=== PATIENT | female | born 1985 ===

== ENCOUNTER 2021-07-09 10:04 | Emergency (ER) | payer OTHER, MEDICAID, SELFPAY ==
[2021-07-09] VITALS (9 sets, daily range): BP systolic 118–139; BP diastolic 57–111; PULSE 76–92; RESP 17–19; TEMP 37.3–38.1; O2SAT 95–99; BMI 21.7
--- NOTE | 2021-07-09 11:01 | ED_ITS ---
HPI - General Adult General Chief complaint: Diabetic Problem Stated complaint: DIABETIC EPISODE. VOMITTING-PAIN Time Seen by Provider: 07/09/21 10:15 Source: patient and family Mode of arrival: Family Vehicle Limitations: no limitations History of Present Illness HPI narrative: 36-year-old woman with type 1 diabetes presents with nausea vomiting diarrhea diaphoresis all starting at 4:00 a.m. this morning. She notes that her sugars have been up a little bit over the evening and her glucose monitor shows a been in the 200-400 range. She has been using her usual nightly Lantus at 18 units as well as her Humalog sliding scale with food. She states that she will occasionally have these episodes of nausea and vomiting last was in early May. Typically there have been other issues found including UTIs at 1 point there was a concern for gallbladder issues sometimes there is no issues that are clearly identified. She currently is menstruating complains of no dysuria she has a mild smoker's cough but nothing that is change to suggest infection and she is vaccinated for COVID. No chest pain, dyspnea, orthopnea, headache, skin rashes or other findings. Related Data Previous Rx's Medication Instructions Recorded insulin glargine 100 unit/mL 40 u SQ QPM #1 u 11/25/16 subcutaneous solution (Lantus U-100 Insulin) insulin lispro 100 unit/mL 8 u SQ TIDCC #1 units 11/25/16 subcutaneous cartridge (Humalog U-100 Insulin) insulin lispro 100 unit/mL 8 u SQ AC #10 ml 11/28/16 subcutaneous solution (Humalog U-100 Insulin) azithromycin 250 mg tablet 250 mg PO SEE INSTRUCTIONS #6 tab 01/05/17 (Zithromax) benzonatate 100 mg capsule 100 mg PO BIDP PRN #30 cap 01/05/17 (Tessalon Perles) bupropion HCl 300 mg 24 hr tablet, 300 mg PO QDAY #30 tab 01/05/17 extended release (Wellbutrin XL) insulin glulisine U-100 100 10 - 25 u SQ AC #3 ml 01/05/17 unit/mL subcutaneous pen (Apidra SoloStar U-100 Insulin) lorazepam 1 mg tablet (Ativan) 1 mg PO TIDP PRN #20 tab 01/05/17 NALTREXONE HCL (REVIA) 50 mg PO QDAY #30 tab 01/10/17 levofloxacin 500 mg tablet 500 mg PO QDAY #10 tab 01/10/17 (Levaquin) metoclopramide HCl 10 mg 10 mg PO Q6H #30 tab 07/09/21 disintegrating tablet ondansetron 4 mg disintegrating 4 mg PO Q8H PRN #30 tab 07/09/21 tablet Allergies Allergy/AdvReac Type Severity Reaction Status Date / Time amoxicillin [AMOXICILLIN] Allergy Unknown Verified 07/09/21 10:38 Penicillins [PENICILLINS] Allergy Unknown Verified 07/09/21 10:38 Review of Systems Review of Systems Narrative: Remainder of complete review of systems is otherwise unremarkable except for that included in the HPI. Patient History Medical History Depression Diabetes mellitus type I Surgical History History of lumpectomy Family History Father Age: 66 Hypertension Hyperlipidemia Mother Age: 63 Diabetes mellitus Grandmother Age: 83 Cancer Social History Smoking Status: Current every day smoker Smoking Status: Current every day smoker tobacco type: cigarettes alcohol intake frequency: 0-2 drinks per day Substance Use Type: does not use Exam Narrative Exam Narrative: General: Healthy appearing, in mild distress. Able to give a complete and coherent history. Well-nourished well-developed HEENT: Moist mucous membranes, normal sclera with reactive pupils, Neck: No JVD, supple Respiratory: Lungs are clear to auscultation, no wheezing no rales no rhonchi. Full and symmetrical air movement Cardiac: Regular rate and rhythm no murmurs no bruits Abdomen: Soft, mild tenderness right upper quadrant with mild diffuse abdominal tenderness. No rebound no guarding, good bowel tones, no flank pain Skin: Warm and dry, no rashes Neurologic: Grossly neurologically intact with no obvious asymmetries or abnormalities Extremities: No trauma, well perfused Psych: Cooperative, appropriate insight and affect Initial Vital Signs Initial Vital Signs: Vital Signs Temperature 100.5 F H 07/09/21 10:31 Pulse Rate 83 07/09/21 10:31 Respiratory Rate 19 07/09/21 10:31 Blood Pressure 139/111 H 07/09/21 10:31 Pulse Oximetry 99 07/09/21 10:31 Course Orders Ordered: ED Orders 07/09/21 10:35 CMP [Comprehensive Metabolic Panel] Stat Complete Blood Count AUTO DIFF Stat Lactate (Lactic Acid) Stat 07/09/21 11:10 COVID19 -Nasal swab/Pre-Proc Stat 07/09/21 11:17 Urine Microscopic Stat 07/09/21 11:50 US abdomen limited Stat Hydromorphone HCl (Hydromorphone 0.5 Mg Inj) 0.5 mg IV Q15MIN PRN PRN Reason: Pain, Discontinued Medications Sodium Chloride (Normal Saline 0.9%) 1,000 mls @ 1,000 mls/hr IV BOLUS ONE Stop: 07/09/21 12:37 Last Infusion: 07/09/21 13:54 Dose: 0 mls/hr Documented by: Admin: 07/09/21 11:56 Dose: 1,000 mls/hr Documented by: MIGUEL Sodium Chloride (Normal Saline 0.9%) 1,000 mls @ 1,000 mls/hr IV BOLUS ONE Stop: 07/09/21 12:48 Last Admin: 07/09/21 13:54 Dose: 1,000 mls/hr Documented by: MIGUEL Ondansetron HCl (Ondansetron 4 Mg/2 Ml Inj) 4 mg IV NOW ONE Stop: 07/09/21 11:39 Last Admin: 07/09/21 11:56 Dose: 4 mg Documented by: MIGUEL Vital Signs Vital signs: Vital Signs - 8 hr 07/09/21 10:31 07/09/21 11:22 07/09/21 11:30 Temperature 100.5 F H 99.2 F Pulse Rate 83 84 76 Respiratory Rate 19 17 Blood Pressure 139/111 H 118/61 Pulse Oximetry 99 98 98 Medical Decision Making Lab Data Result diagrams: 07/09/21 10:35 07/09/21 10:35 Labs: Lab Results 07/09/21 07/09/21 07/09/21 Range/Units 10:35 10:35 10:35 WBC 13.5 H (4.5-11.0) X10^3/uL RBC 4.46 (4.0-5.2) X10^6/uL Hgb 14.0 (12.0-16.0) g/dL Hct 42.4 (36-46) % MCV 95.1 (80-100) fL MCH 31.5 (26-34) PG MCHC 33.1 (30-36) % RDW 12.9 (11.6-14.8) % Plt Count 350 (150-400) X10^3/uL Neut % (Auto) 92.2 H (50-75) % Lymph % (Auto) 5.7 L (25-40) % [place] % (Auto) 2.0 L (3-14) % Eos % (Auto) 0.0 L (2-4) % Baso % (Auto) 0.1 (0-2) % Neut # (Auto) 39279 H (1756-6825) /uL Lymph # (Auto) 800 L (1298-0474) /uL [place] # (Auto) 300 (0-900) /uL Eos # (Auto) 0 (0-450) /uL Baso # (Auto) 0 (0-100) /uL Sodium 138 (137-145) mmol/L Potassium 3.8 (3.4-5.1) mmol/L Chloride 107 (98-107) mmol/L Carbon Dioxide 18 L (22-32) mmol/L BUN 13 (7-17) mg/dL Creatinine 0.77 (0.52-1.04) mg/dL Estimated GFR > 60.0 (>60) mL/min BUN/Creatinine Ratio 16.9 (6-22) Glucose 186 H (70-100) mg/dL Lactate 2.7 H (0.7-2.1) mmol/L Calcium 9.6 (8.4-10.2) mg/dL Total Bilirubin 1.3 (0.2-1.3) mg/dL AST 32 (14-36) IU/L ALT 27 (<35) IU/L Alkaline Phosphatase 55 (38-126) U/L Total Protein 7.3 (6.3-8.2) g/dL Albumin 4.7 (3.5-5.0) g/dL Globulin 2.6 (1.7-4.1) g/dL Albumin/Globulin Ratio 1.8 (1.0-2.8) Urine RBC (0-5/HPF) Urine WBC (0-5/HPF) Amorphous Sediment Urine Bacteria (None) Ur Culture Indicated? SARS-CoV-2 (PCR) (Negative) 07/09/21 07/09/21 07/09/21 Range/Units 11:10 11:17 13:15 WBC (4.5-11.0) X10^3/uL RBC (4.0-5.2) X10^6/uL Hgb (12.0-16.0) g/dL Hct (36-46) % MCV (80-100) fL MCH (26-34) PG MCHC (30-36) % RDW (11.6-14.8) % Plt Count (150-400) X10^3/uL Neut % (Auto) (50-75) % Lymph % (Auto) (25-40) % [place] % (Auto) (3-14) % Eos % (Auto) (2-4) % Baso % (Auto) (0-2) % Neut # (Auto) (6294-8264) /uL Lymph # (Auto) (6665-4296) /uL [place] # (Auto) (0-900) /uL Eos # (Auto) (0-450) /uL Baso # (Auto) (0-100) /uL Sodium (137-145) mmol/L Potassium (3.4-5.1) mmol/L Chloride (98-107) mmol/L Carbon Dioxide (22-32) mmol/L BUN (7-17) mg/dL Creatinine (0.52-1.04) mg/dL Estimated GFR (>60) mL/min BUN/Creatinine Ratio (6-22) Glucose (70-100) mg/dL Lactate 0.9 (0.7-2.1) mmol/L Calcium (8.4-10.2) mg/dL Total Bilirubin (0.2-1.3) mg/dL AST (14-36) IU/L ALT (<35) IU/L Alkaline Phosphatase (38-126) U/L Total Protein (6.3-8.2) g/dL Albumin (3.5-5.0) g/dL Globulin (1.7-4.1) g/dL Albumin/Globulin Ratio (1.0-2.8) Urine RBC None seen (0-5/HPF) Urine WBC None seen (0-5/HPF) Amorphous Sediment 2+ Urine Bacteria None seen (None) Ur Culture Indicated? Cult not indicated SARS-CoV-2 (PCR) Negative (Negative) Point of Care Testing Test Results Negative Glucose POC 182 Urine Dip Bedside Urine Glucose Negative Bedside Urine Bilirubin - Negative Bedside Urine Ketone +++ 80 Urine Specific [place] 1.015 Bedside Urine Occult Blood ++ Bedside Urine pH 8.0 Bedside Urine Protein + 30 Bedside Urine Urobilinogen - Negative Bedside Urine Nitrite - Negative Bedside Urine Leukocytes - Negative Esterase Point of care testing: Point of Care Testing Test Results Negative Glucose POC 182 Urine Dip Bedside Urine Glucose Negative Bedside Urine Bilirubin - Negative Bedside Urine Ketone +++ 80 Urine Specific [place] 1.015 Bedside Urine Occult Blood ++ Bedside Urine pH 8.0 Bedside Urine Protein + 30 Bedside Urine Urobilinogen - Negative Bedside Urine Nitrite - Negative Bedside Urine Leukocytes - Negative Esterase MDM Narrative Medical decision making narrative: 36-year-old type 1 diabetic presents with nausea and vomiting. This has been a recurrent issue for her she will frequently wake up nauseated and then have persistent vomiting. At time she has had episodes of DKA some time she has had urinary tract infections. Today's episode does not seem to include either those. There is no evidence of overwhelming infection, sepsis, intra-abdominal infection, DKA or UTI. She will be discharged home with dual anti emetics both Reglan to help with presumed gastroparesis which likely is complicating all of these issues and Zofran to simply suppressant nausea if the right gland is ineffective. Will ask for follow-up with her primary care physician. She is safe for home discharge Discharge Plan Departure Patient Disposition: Home Clinical Impression: Acute dehydration, Vomiting with nausea, not intractable Diabetes mellitus type I Qualifiers: Diabetes mellitus complication status: with other specified complication Qualified Code(s): E10.69 - Type 1 diabetes mellitus with other specified complication Instructions: Nausea and Vomiting-Adult Activity Restrictions/Additional Instructions: Thank you for coming in today Your blood work was reassuring. You were slightly dehydrated and we have fixed that with 2 L of fluid in the emergency department. There is no evidence of acute infection, heart attack, gallstones or gallbladder disease, pancreatitis or anything that would work choir surgical intervention for your abdominal pain. I am going to actually given 2 different types of nausea medications. One is called Reglan/metoclopramide. This is frequently helpful in diabetes because it helps food move faster through the stomach. I am also going to give you some ondansetron/Zofran that can help with straight nausea. Please continue to closely monitor your blood sugars in use your Lantus as well as short-acting insulin as directed If you have recurrent symptoms are worsening issues, please feel free to return to the ER Prescriptions: New ondansetron 4 mg tablet,disintegrating 4 mg PO Q8H PRN (Reason: nausea and vomiting) Qty: 30 RF: 0 metoclopramide HCl 10 mg tablet,disintegrating 10 mg PO Q6H Qty: 30 RF: 0 No Action insulin glargine [Lantus U-100 Insulin] 100 UNIT/1 ML solution 40 u SQ QPM Qty: 1 RF: 0 insulin lispro [Humalog U-100 Insulin] 100 UNIT/1 ML cartridge 8 u SQ TIDCC Qty: 1 RF: 0 insulin lispro [Humalog U-100 Insulin] 100 UNIT/1 ML solution 8 u SQ AC Qty: 10 RF: 0 azithromycin [Zithromax] 250 MG tablet 250 mg PO SEE INSTRUCTIONS Qty: 6 RF: 0 insulin glulisine U-100 [Apidra SoloStar U-100 Insulin] 100 UNIT/1 ML insulin pen 10 - 25 u SQ AC Qty: 3 RF: 9 benzonatate [Tessalon Perles] 100 MG capsule 100 mg PO BIDP PRNQty: 30 RF: 2 lorazepam [Ativan] 1 MG tablet 1 mg PO TIDP PRNQty: 20 RF: 1 bupropion HCl [Wellbutrin XL] 300 MG tablet extended release 24 hr 300 mg PO QDAY Qty: 30 RF: 3 NALTREXONE HCL (REVIA) 50 mg PO QDAY Qty: 30 RF: 3 levofloxacin [Levaquin] 500 MG tablet 500 mg PO QDAY Qty: 10 RF: 0
[2021-07-09 11:08] LABS: Add Manual Diff / Slide Review NO; Basophils Absolute Auto 0 /uL (0-100); Basophils Percent Auto 0.1 % (0-2); Eosinophils Absolute Auto 0 /uL (0-450); Hematocrit 42.4 % (36-46); Lymphocytes Absolute Auto 800 /uL (1100-4500); Lymphocytes Percent Auto 5.7 % (25-40); Mean Corpuscular HGB Conc 33.1 % (30-36); Mean Corpuscular Hemoglobin 31.5 PG (26-34); Mean Corpuscular Volume 95.1 fL (80-100); Monocytes Absolute Auto 300 /uL (0-900); Neutrophils Absolute Auto 12500 /uL (1500-7000); Neutrophils Percent Auto 92.2 % (50-75); Platelet Count 350 X10^3/uL (150-400); Red Blood Cell Count 4.46 X10^6/uL (4.0-5.2); Red Cell Distribution Width 12.9 % (11.6-14.8); White Blood Cell Count 13.5 X10^3/uL (4.5-11.0)
[2021-07-09 11:10] LABS: Lactate (Lactic Acid) 2.7 mmol/L (0.7-2.1)
[2021-07-09 11:11] LABS: Alanine Aminotransferase 27 IU/L (<35); Albumin 4.7 g/dL (3.5-5.0); Albumin Globulin Ratio 1.8 (1.0-2.8); Alkaline Phosphatase 55 U/L (38-126); Aspartate Aminotransferase 32 IU/L (14-36); BUN Creatinine Ratio 16.9 (6-22); Bilirubin Total 1.3 mg/dL (0.2-1.3); Blood Urea Nitrogen 13 mg/dL (7-17); Calcium 9.6 mg/dL (8.4-10.2); Carbon Dioxide 18 mmol/L (22-32); Chloride 107 mmol/L (98-107); Estimated Glomerular Filt Rate > 60.0 mL/min (>60); Globulin 2.6 g/dL (1.7-4.1); Glucose 186 mg/dL (70-100); HEMOLYSIS < 15 (0-50); Potassium 3.8 mmol/L (3.4-5.1); Sodium 138 mmol/L (137-145); Total Protein 7.3 g/dL (6.3-8.2)
--- NOTE | 2021-07-09 11:39 | PC.NURSE ---
Patient with type 1 diabetes reports several episodes per month of sudden onset vomiting/diarrhea and blood sugar in the 200's. This morning the episode started at 0400. Has subsided, states she is no longer having vomiting or diarrhea. Is no longer diaphoretic. Temp is normal at 99.2F.
[2021-07-09 11:43] LABS: COVID19 -Nasal RAPID Negative (Negative)
[2021-07-09 11:48] LABS: Bacteria Urine None Seen; RBC Urine None Seen (0-5/HPF); WBC Urine None Seen (0-5/HPF)
--- NOTE | 2021-07-09 11:50 | DI.US.S_ITS ---
PROCEDURE: US ABDOMEN LIMITED INDICATIONS: RUQ PAIN TECHNIQUE: Real-time scanning was performed of the abdominal and retroperitoneal organs, with image documentation. COMPARISON: None. FINDINGS: Liver: Echogenic 1.2 x 1.5 x 1.0 cm focus noted in the right anterior lobe probably reflects hemangioma. Remainder the liver unremarkable. No intrahepatic biliary ductal dilatation. Gallbladder: Within normal limits. No gallbladder wall thickening or pericholecystic fluid. Biliary ducts: Intrahepatic bile ducts are non-dilated. Extrahepatic bile duct caliber measures 5.9 mm. Normal is 6-7 mm or less in diameter, or 10 mm or less post-cholecystectomy. Pancreas: Visualized portions of the pancreas are sonographically normal. IMPRESSION: Unremarkable gallbladder and common bile duct Incidental echogenic 1.5 cm probable hepatic hemangioma. Approved by: Edy Hadley M.D. on 07/09/2021 at 12:07
[2021-07-09] MEDS: ONDANSETRON 4 MG/2 ML INJ IV (11:56)
[2021-07-09] MEDS: SODIUM CHLORIDE 0.9% 1,000 ML 1000 ML IV ×2 (11:56→13:54)
[2021-07-09 12:05] LABS: Amorphous Sediment Urine 2+; Culture Indicated Urine Cult Not Indicated
[2021-07-09 12:59] LABS: Reflexed Lactate in 2 Hours Y
[2021-07-09 13:30] LABS: Lactate 2HR (Lactic Acid Rflx) 0.9 mmol/L (0.7-2.1)
== END 2021-07-09 15:00 | disposition home or self-care (01) ==
PROVIDERS: Emergency Provider Emergency Medicine; Family Provider Nurse Practitioner Family
DX: E86.0 Dehydration (principal); R11.2 Nausea with vomiting, unspecified; E10.69 Type 1 diabetes mellitus with other specified complication; Z20.822 Contact with and (suspected) exposure to COVID-19
CPT/HCPCS: 36415; 76705; 80053; 81003; 81015; 81025; 82962; 83605; 85025; 87635; 96361; 96374; 99283; 99284; C9803; J2405